=== PATIENT | male | born 1995 | race Hispanic/Latino ===

== ENCOUNTER → 2023-05-07 | Emergency (ER) | payer SELFPAY ==
[~2023-05-07] MED LIST: HYDROCODONE/APAP 5/325 MG TAB ONE
--- OUTSIDE RECORDS SUMMARY | 2023-05-07 03:23 | XMS REPORT | Continuity of Care Document ---
Author Name Unknown Address [address] [place] [address] [employer] Address [address] [place] [address] Care Team Providers Care Commercial Loan Assistant Name Role Phone zulay Attending Clinician Unavailable zulay Admitting Clinician Unavailable Encounters Start Date/Time End Date/Time Encounter Type Admission Type Attending Clinicians Care Facility Care Department Encounter ID Source 2019-06-03 10:42:00 2019-06-03 10:42:00 Outpatient zulay [facility] [id number] [facility]
--- NOTE | 2023-05-07 05:52 | ER ---
Nurse's Notes [facility] Name: Malik Mustafa Age: 28 yrs Sex: Male : 1995 Arrival Date: 05/07/2023 Time: 03:20 Bed DX3 Private MD: Diagnosis: Nontraumatic hematoma of soft tissue-Subungual hematoma of left thumb Presentation: 05/06 03:33 Chief complaint: Patient states: I slammed my thumb in my car door around 7pm jb4 yesterday. It was making it so I could not sleep. Coronavirus screen: At this time, the client does not indicate any symptoms associated with coronavirus-19. Ebola Screen: No symptoms or risks identified at this time. Initial Sepsis Screen: Does the patient meet any 2 criteria? No. Patient's initial sepsis screen is negative. Does the patient have a suspected source of infection? No. Patient's initial sepsis screen is negative. Risk Assessment: Do you want to hurt yourself or someone else? Patient reports no desire to harm self or others. Onset of symptoms was May 07, 2023. Transition of care: patient was not received from another setting of care. 03:33 Method Of Arrival: Ambulatory jb4 03:33 Acuity: KIP 4 jb4 Triage Assessment: 03:35 General: Appears in no apparent distress. comfortable, Behavior is calm, cooperative, jb4 appropriate for age. Pain: Complains of pain in dorsal aspect of distal phalanx of left thumb Pain does not radiate. Pain currently is 9 out of 10 on a pain scale. Quality of pain is described as throbbing. EENT: No signs and/or symptoms were reported regarding the EENT system. Neuro: Level of Consciousness is awake, alert, obeys commands, Oriented to person, place, time, situation. Cardiovascular: Patient's skin is warm and dry. Respiratory: Airway is patent Respiratory effort is even, unlabored, Respiratory pattern is regular, symmetrical. GI: No signs and/or symptoms were reported involving the gastrointestinal system. : No signs and/or symptoms were reported regarding the genitourinary system. Derm: Skin is intact, Skin is pink, warm \T\ dry. Musculoskeletal: Circulation, motion, and sensation intact. Range of motion: intact in all extremities. Injury Description: Bruise sustained to left thumbnail. Historical: - Allergies: 03:35 No Known Allergies; jb4 - PMHx: 03:35 None; jb4 - PSHx: 03:35 None; jb4 - Immunization history:: Adult Immunizations unknown. - Social history:: Smoking status: Patient reports the use of cigarette tobacco products, smokes one pack cigarettes per day. Screenin:01 [facility] ED Fall Risk Assessment (Adult) History of falling in the last 3 months, jb4 including since admission No falls in past 3 months (0 pts) Confusion or Disorientation No (0 pts) Intoxicated or Sedated No (0 pts) Impaired Gait No (0 pts) Mobility Assist Device Used No (0 pt) Altered Elimination No (0 pt) Score/Fall Risk Level 0 - 2 = Low Risk Oriented to surroundings, Maintained a safe environment. Abuse screen: Denies threats or abuse. Nutritional screening: No deficits noted. Tuberculosis screening: No symptoms or risk factors identified. Assessment: 05:35 Reassessment: Patient appears in no apparent distress at this time. Patient and/or jb4 family updated on plan of care and expected duration. Pain level reassessed. Patient is alert, oriented x 3, equal unlabored respirations, skin warm/dry/pink. 06:01 Reassessment: Patient appears in no apparent distress at this time. Patient and/or jb4 family updated on plan of care and expected duration. Pain level reassessed. Patient is alert, oriented x 3, equal unlabored respirations, skin warm/dry/pink. Vital Signs: 03:33 BP 154 / 99; Pulse 67; Resp 16; Temp 97.8(TE); Pulse Ox 100% on R/A; Weight 97.07 kg jb4 (R); Height 5 ft. 11 in. (R); Pain 9/10; 03:33 Body Mass Index 29.85 (97.07 kg, 180.34 cm) jb4 03:33 Pain Scale: Adult jb4 ED Course: 03:23 Patient arrived in ED. jj6 03:35 Triage completed. jb4 03:35 Arm band placed on right wrist. jb4 03:37 Sanket Mead, ELIN is Primary Nurse. jb4 03:55 Lilo Pena is Attending Physician. ci 05:20 XRAY Finger-Thumb Left In Process Unspecified. EDMS 06:01 Patient has correct armband on for positive identification. Provided Education on: jb4 discharge instructions. 06:01 No provider procedures requiring assistance completed. Patient did not have IV access jb4 during this emergency room visit. Administered Medications: 04:39 Drug: HYDROcodone-acetaminophen PO 5 mg-325 mg 1 tabs PO once Route: PO; jb4 06:01 Follow up: Response: No adverse reaction; Marked relief of symptoms jb4 Medication: 06:01 VIS not applicable for this client. jb4 Outcome: 05:52 Discharge ordered by MD. hairston 06:01 Discharged to home ambulatory, jb4 06:01 Condition: stable 06:01 Discharge instructions given to patient, Instructed on discharge instructions, follow up and referral plans. Demonstrated understanding of instructions, follow-up care, 06:02 Patient left the ED. jb4 Signatures: Dispatcher [employer] EDSanket Scott, RN RN jb4 Denise Mark jj6 IheonunekwuLilo Corrections: (The following items were deleted from the chart) 04:28 04:27 To radiology for Finger-Thumb Left+.RAD.RAD.BRZ. jb4 EDMS
--- NOTE | 2023-05-07 05:52 | EDPHYS ---
Physician Documentation [facility] Name: Malik Mustafa Age: 28 yrs Sex: Male : 1995 Arrival Date: 05/07/2023 Time: 03:20 Bed DX3 Private MD: ED Physician Lilo Pena HPI: 05/06 05:47 This 28 yrs old Male presents to ER via Ambulatory with complaints of Thumb ci Injury. 05:47 Patient is a 28-year-old male with no PMH who presents with left thumb injury that ci occurred around 7 PM. Patient accidentally slammed the door against his left thumb. He attempted to drain subungual hematoma by using the pain but does not think he got hematoma out. Denies paresthesias, tried to Tylenol with no improvement.. Historical: - Allergies: 03:35 No Known Allergies; jb4 - PMHx: 03:35 None; jb4 - PSHx: 03:35 None; jb4 - Immunization history:: Adult Immunizations unknown. - Social history:: Smoking status: Patient reports the use of cigarette tobacco products, smokes one pack cigarettes per day. ROS: 05:47 MS/extremity: Positive for contusion, ecchymosis, ci Exam: 05:47 Constitutional: This is a well developed, well nourished patient who is awake, alert, ci and in no acute distress. Head/Face: Normocephalic, atraumatic. Eyes: Pupils equal round and reactive to light, extra-ocular motions intact. Lids and lashes normal. Conjunctiva and sclera are non-icteric and not injected. Cornea within normal limits. Periorbital areas with no swelling, redness, or edema. ENT: Nares patent. No nasal discharge, no septal abnormalities noted. Tympanic membranes are normal and external auditory canals are clear. Oropharynx with no redness, swelling, or masses, exudates, or evidence of obstruction, uvula midline. Mucous membranes moist. Neck: Trachea midline, no thyromegaly or masses palpated, and no cervical lymphadenopathy. Supple, full range of motion without nuchal rigidity, or vertebral point tenderness. No Meningismus. Chest/axilla: Normal chest wall appearance and motion. Nontender with no deformity. No lesions are appreciated. Cardiovascular: Regular rate and rhythm with a normal S1 and S2. No gallops, murmurs, or rubs. Normal PMI, no JVD. No pulse deficits. Respiratory: Lungs have equal breath sounds bilaterally, clear to auscultation and percussion. No rales, rhonchi or wheezes noted. No increased work of breathing, no retractions or nasal flaring. Abdomen/GI: Soft, non-tender, with normal bowel sounds. No distension or tympany. No guarding or rebound. No evidence of tenderness throughout. Back: No spinal tenderness. No costovertebral tenderness. Full range of motion. Skin: Warm, dry with normal turgor. Normal color with no rashes, no lesions, and no evidence of cellulitis. Neuro: Awake and alert, GCS 15, oriented to person, place, time, and situation. Cranial nerves II-XII grossly intact. Motor strength 5/5 in all extremities. Sensory grossly intact. Cerebellar exam normal. Normal gait. Psych: Awake, alert, with orientation to person, place and time. Behavior, mood, and affect are within normal limits. 05:47 Musculoskeletal/extremity: Nails: Subungual hematoma, of the left thumbnail, Vital Signs: 03:33 BP 154 / 99; Pulse 67; Resp 16; Temp 97.8(TE); Pulse Ox 100% on R/A; Weight 97.07 kg jb4 (R); Height 5 ft. 11 in. (R); Pain 9/10; 03:33 Body Mass Index 29.85 (97.07 kg, 180.34 cm) [facility] 03:33 Pain Scale: Adult jb4 MDM: 03:55 Patient medically screened. ci 05:49 Differential Diagnosis Subungual hematoma, thumb fracture, thumb dislocation. Data ci reviewed: vital signs, nurses notes. 05:51 ED course: Drainage of subungual hematoma was considered, Bovie coming from OR but ci patient is going to work and does not want to wait. Will discharge with naproxen and refer to PCP and Ortho.. 05/06 04:32 Order name: XRAY Finger-Thumb Left jb4 Administered Medications: 04:39 Drug: HYDROcodone-acetaminophen PO 5 mg-325 mg 1 tabs PO once Route: PO; 4 06:01 Follow up: Response: No adverse reaction; Marked relief of symptoms jb4 Disposition Summary: 05/07/23 05:52 Discharge Ordered Notes: Location: Home ci Condition: Stable ci Diagnosis - Nontraumatic hematoma of soft tissue - Subungual hematoma of left thumb ci Followup: ci - With: Private Physician - When: 2 - 3 days - Reason: Recheck today's complaints, Re-evaluation by your physician Discharge Instructions: - Discharge Summary Sheet ci - Subungual Hematoma, [id number] ci Forms: - Medication Reconciliation Form ci - Thank You Letter ci - Antibiotic Education ci - Prescription Opioid Use ci - Patient Portal Instructions ci - Leadership Thank You Letter ci Signatures: Dispatcher [employer] EDSanket Scott RN RN jb4 Lilo Pena ci Corrections: (The following items were deleted from the chart) 04:28 04:14 Finger-Thumb Left+.RAD.RAD.BRZ ordered. EDNC EDMS
[2023-05-07 06:56] VITALS: BP 154/99; TEMP 97.8; O2SAT 100
--- NOTE | 2023-05-07 12:47 | RAD REPORT ---
EXAM DESCRIPTION: - Finger-Thumb Left - 05/07/2023 5:18 am CLINICAL HISTORY: PAIN COMPARISON: None. TECHNIQUE: XR FINGERS LEFT 05/07/2023 4:32 AM CDT FINDINGS: There is no fracture. Joint spaces are preserved. Soft tissues are unremarkable. IMPRESSION: No acute osseous findings. Electronically signed by: Tad Hernandez MD 05/07/2023 06:56 AM CDT Due to temporary technical issues with the PACS/Fluency reporting system, reports are being signed by the in house radiologist without review as a courtesy to ensure prompt reporting. The interpreting r adiologist is fully responsible for the content of the report.
== END ==
LOC: ER 03:20
DX: S60.112A Contusion of left thumb with damage to nail, initial encounter (principal)
CPT/HCPCS: 99283